=== PATIENT | male | born 1985 | race Hispanic/Latino ===

== ENCOUNTER 2021-10-03 14:11 | Emergency (ER) | payer SELFPAY ==
[~2021-10-03] VITALS: Ht 172.7 cm; Wt 61.3 kg
[2021-10-03 14:17] VITALS: BP 141/90
[2021-10-03 14:30] VITALS: BP 119/92
[2021-10-03 14:45] VITALS: BP 126/75
[2021-10-03 14:49] LABS: HEMATOCRIT 45.6 % (39.0-50.0); HEMOGLOBIN 15.4 g/dl (14.0-18.0); IMMATURE GRANULOCYTES 0.1 % (0.0-5.0); MEAN CELL VOLUME 87.2 fL CALC (80.0-100.0); MEAN CORPUSCULAR HGB 29.4 pG CALC (26.0-32.0); MEAN CORPUSCULAR HGB CONC 33.8 g/dL CAL (32.0-36.0); NEUT# 4.21 thou/uL (1.82-7.42); RED BLOOD COUNT 5.23 mill/uL (4.70-6.10); RED CELL DISTRI WIDTH 12.8 % (11.5-15.5)
[2021-10-03 14:55] LABS: PROTHROMBIN TIME 10.5 SECONDS (9.0-12.5)
[2021-10-03 14:57] LABS: ALBUMIN 4.6 g/dL (3.2-5.0); ALKALINE PHOSPHATASE 75 u/l (38-126); ANION GAP 12 (6-22 (CALC)); BILIRUBIN, TOTAL 0.7 mg/dL (0.0-1.4); BUN 7 mg/dL (9-20); BUN/CREATININE RATIO 8 (12-20 (CALC)); CARBON DIOXIDE 21 mmol/l (22-30); CHLORIDE 107 mmol/l (95-108); GFR > 60 ML/MIN (>=60 (CALC)); GFR FOR AFR.AMER. > 60 ML/MIN (>=60 (CALC)); POTASSIUM 3.9 mmol/l (3.5-5.1); SGOT/AST 23 u/l (17-59); SODIUM 137 mmol/l (137-146); TOTAL PROTEIN 7.8 g/dL (6.3-8.2)
[2021-10-03 15:00] VITALS: BP 111/68
[2021-10-03 15:09] LABS: MYOGLOBIN 23 ng/mL (0 - 121)
[2021-10-03 15:15] VITALS: BP 119/75
[2021-10-03] MEDS ORDERED: XANAX0.25 MG PO (16:27)
[2021-10-03 16:43] VITALS: BP 119/75
== END 2021-10-03 16:51 | disposition home or self-care (01) | DRG 880 ==
LOC: ED 14:11
PROVIDERS: Nurse Practitioner
DX: F41.9 Anxiety disorder, unspecified (principal); F17.210 Nicotine dependence, cigarettes, uncomplicated
CPT/HCPCS: J2060; Q9967

== ENCOUNTER 2022-05-22 15:10 | Emergency (ER) | payer MEDICAID ==
[~2022-05-22] VITALS: Ht 172.7 cm; Wt 61.0 kg
[~2022-05-22 15:10] MED LIST: XANAX0.25 MG PO
[2022-05-22 15:35] VITALS: BP 127/79
[2022-05-22 16:00] VITALS: BP 148/91
[2022-05-22 16:30] LABS: BASO% 0.1 % (0-3); EOS% 0.1 % (0-8); HEMATOCRIT 46.6 % (39.0-50.0); HEMOGLOBIN 16.1 g/dl (14.0-18.0); IMMATURE GRANULOCYTES 0.1 % (0.0-5.0); LYMPH% 8.9 % (15-41); MEAN CELL VOLUME 86.3 fL CALC (80.0-100.0); MEAN CORPUSCULAR HGB 29.8 pG CALC (26.0-32.0); MEAN CORPUSCULAR HGB CONC 34.5 g/dL CAL (32.0-36.0); MONO% 5.7 % (2-13); NEUT# 7.37 thou/uL (1.82-7.42); NEUT% 85.1 % (42-76); RED BLOOD COUNT 5.4 mill/uL (4.70-6.10); RED CELL DISTRI WIDTH 13.5 % (11.5-15.5)
[2022-05-22 16:31] VITALS: BP 121/81
[2022-05-22 16:44] LABS: ALBUMIN 4.8 g/dL (3.2-5.0); ALKALINE PHOSPHATASE 90 u/l (38-126); ANION GAP 14 (6-22 (CALC)); BILIRUBIN, TOTAL 0.8 mg/dL (0.0-1.4); BUN 9 mg/dL (9-20); BUN/CREATININE RATIO 9 (12-20 (CALC)); CARBON DIOXIDE 24 mmol/l (22-30); CHLORIDE 105 mmol/l (95-108); GFR FOR AFR.AMER. > 60 ML/MIN (>=60 (CALC)); GFR OTHER RACES > 60 ML/MIN (>=60 (CALC)); LIPASE 17 u/l (23-300); POTASSIUM 4.3 mmol/l (3.5-5.1); SGOT/AST 34 u/l (17-59); SODIUM 140 mmol/l (137-146); TOTAL PROTEIN 7.9 g/dL (6.3-8.2)
[2022-05-22 17:01] VITALS: BP 150/76
[2022-05-22 17:30] VITALS: BP 150/89
[2022-05-22 18:08] LABS: URINE BILIRUBIN - DIPSTICK NEGATIVE (NEGATIVE); URINE BLOOD DIPSTICK SMALL (NEGATIVE); URINE COLOR YELLOW; URINE GLUCOSE - DIPSTICK NEGATIVE (NEGATIVE); URINE KETONE TRACE mg/dL (NEGATIVE); URINE LEUK ESTERASE NEGATIVE (NEGATIVE); URINE PH 5.5 (4.5-8.0); URINE PROTEIN - DIPSTICK NEGATIVE (NEG-TRACE); URINE SPECIFIC GRAVITY >=1.030; URINE UROBILINOGEN - DIPSTICK 0.2 E.U./dL (0.2)
[2022-05-22 18:21] LABS: URINE NITRITE - DIPSTICK NEGATIVE (Negative)
[2022-05-22 18:23] LABS: URINE WBC 0-2 WBC/hpf (0-5)
[2022-05-22] MEDS ORDERED: ONDANSETRON4 MG PO (18:59)
[2022-05-22] MEDS ORDERED: MIRALAX17 GM/SCOO PO (18:59)
[2022-05-22 19:02] VITALS: BP 150/89
== END 2022-05-22 19:06 | disposition home or self-care (01) ==
LOC: ED 15:10
PROVIDERS: Nurse Practitioner
DX: K52.9 Noninfective gastroenteritis and colitis, unspecified (principal); Z20.822 Contact with and (suspected) exposure to COVID-19

== ENCOUNTER 2023-01-29 15:27 | Emergency (ER) | payer MEDICAID ==
[~2023-01-29] VITALS: Ht 172.7 cm; Wt 56.6 kg
[~2023-01-29 15:27] MED LIST changes: +MIRALAX17 GM/SCOO PO; +ONDANSETRON4 MG PO
[2023-01-29 15:57] LABS: BASO% 0.3 % (0-3); EOS% 2.3 % (0-8); HEMATOCRIT 43.5 % (39.0-50.0); HEMOGLOBIN 14.3 g/dl (14.0-18.0); IMMATURE GRANULOCYTES 0.1 % (0.0-5.0); LYMPH% 33.2 % (15-41); MEAN CELL VOLUME 87.9 fL CALC (80.0-100.0); MEAN CORPUSCULAR HGB 28.9 pG CALC (26.0-32.0); MEAN CORPUSCULAR HGB CONC 32.9 g/dL CAL (32.0-36.0); MONO% 8.3 % (2-13); NEUT# 4.36 thou/uL (1.82-7.42); NEUT% 55.8 % (42-76); RED BLOOD COUNT 4.95 mill/uL (4.70-6.10); RED CELL DISTRI WIDTH 14.1 % (11.5-15.5)
[2023-01-29 16:18] LABS: ALBUMIN 4.3 g/dL (3.2-5.0); ALKALINE PHOSPHATASE 82 u/l (38-126); ANION GAP 12 (6-22 (CALC)); BILIRUBIN, TOTAL 0.4 mg/dL (0.2-1.3); BUN 15 mg/dL (9-20); BUN/CREATININE RATIO 14 (12-20 (CALC)); C-REACTIVE PROTEIN < 0.5 mg/dL (0-0.9); CARBON DIOXIDE 25 mmol/l (22-30); CHLORIDE 105 mmol/l (95-108); CPK 298 u/l (55-170); CREATININE 1.1 mg/dL (0.7-1.3); GFR FOR AFR.AMER. > 60 ML/MIN (>=60 (CALC)); GFR OTHER RACES > 60 ML/MIN (>=60 (CALC)); POTASSIUM 3.8 mmol/l (3.5-5.1); SGOT/AST 36 u/l (17-59); SODIUM 138 mmol/l (137-146); TOTAL PROTEIN 6.9 g/dL (6.3-8.2)
[2023-01-29] MEDS ORDERED: NAPROXEN500 MG PO (17:28)
[2023-01-29] MEDS ORDERED: NEURONTIN100 MG PO (17:28)
[2023-01-29] MEDS ORDERED: PREDNISONE20 MG PO (17:28)
[2023-01-29 17:32] VITALS: BP 148/93
== END 2023-01-29 17:54 | disposition home or self-care (01) ==
LOC: ED 15:27
PROVIDERS: Nurse Practitioner
DX: R07.89 Other chest pain (principal)

== ENCOUNTER 2024-01-08 15:25 | Emergency (ER) | payer MEDICAID ==
[~2024-01-08] VITALS: Ht 172.7 cm; Wt 61.2 kg
[~2024-01-08 15:25] MED LIST changes: +NAPROXEN500 MG PO; +NEURONTIN100 MG PO; +PREDNISONE20 MG PO
[2024-01-08 15:29] VITALS: BP 137/89
[2024-01-08 15:31] VITALS: BP 154/98
[2024-01-08] MEDS ORDERED: SILVER SULFADIAZINE 50 GM/TUBE EA TOP ONE (15:35)
[2024-01-08 15:46] VITALS: BP 134/97
[2024-01-08 16:00] VITALS: BP 135/100
[2024-01-08 16:15] VITALS: BP 141/96
[2024-01-08] MEDS ORDERED: KEFLEX500 MG PO (16:25)
== END 2024-01-08 16:30 | disposition home or self-care (01) ==
LOC: ED 15:25
DX: T63.431A Toxic effect of venom of caterpillars, accidental (unintentional), initial encounter (principal); L53.0 Toxic erythema; Z72.0 Tobacco use